=== PATIENT | male | born 1960 | race Two or more races ===

== ENCOUNTER → 2024-08-21 | Outpatient (CLI) | payer OTHER, SELFPAY ==
--- NOTE | 2024-08-21 12:29 | XR_ITS ---
Examination: Abdomen sonogram, Limited Date and time of exam: August 21, 2024 1313 hrs. Indications: Mid abdominal pain and palpable lump in the umbilical region noticed beginning one month ago Technique: Real-time smith scale transabdominal sonographic images of the upper abdomen obtained. Findings: Hernia at the umbilicus 15 x 7 x 12 mm Impression: Small umbilical hernia defect
== END | disposition home or self-care (01) ==
PROVIDERS: PCP Family Medicine; Referring Provider Nurse Practitioner Family; Visit Provider Nurse Practitioner Family
DX: K42.9 Umbilical hernia without obstruction or gangrene (principal)
CPT/HCPCS: 76705